=== PATIENT | female | born 1985 | race Caucasian/White ===

== ENCOUNTER 2021-02-08 12:48 | Day surgery (SDC) | payer BC ==
[2021-02-08 13:31] VITALS: BMI 34.4
[2021-02-08] MEDS ORDERED: hydrALAZINE 20 MG/ML VIAL SLOW IVP PRN (13:49)
[2021-02-08 14:46] LABS: Creatinine, Urine 57.64 mg/dL (47-110); Protein, Urine Random Quant Less than 10 mg/dL (1-14)
[2021-02-08 15:59] LABS: Hemoglobin 11.4 g/dL (12.0-15.5); Mean Corpuscular HGB CONC 33.3 g/dL (32.0-36.0); Mean Corpuscular Hemoglobin 26.4 pg (27.0-33.0); Mean Corpuscular Volume 79.2 fl (81.6-98.3); Platelet Count 311 10x3/uL (150-450); RBC Distribution Width 14.3 % (11.5-14.5); Red Blood Cell (RBC) Count 4.32 10x6/uL (3.90-5.03); White Blood Cell (WBC) Count 11.3 10x3/uL (3.5-10.5)
[2021-02-08 16:17] LABS: ALT (SGPT) 10 U/L (8-55); AST (SGOT) 9 U/L (5-34); Albumin 3.4 g/dL (3.5-5.0); Alkaline Phosphatase 127 U/L (40-110); Anion Gap 14 mmol/L (10-20); BUN (Urea Nitrogen) 9 mg/dL (7.0-18.7); Bilirubin, Total 0.2 mg/dL (0.2-1.2); Calc. Creatinine Clearance 197 mL/min (70-130); Calcium 9.2 mg/dL (7.8-10.44); Carbon Dioxide 21 mmol/L (22-29); Chloride 105 mmol/L (98-107); Globulin 2.8 g/dL (2.4-3.5); Glucose 86 mg/dL (70-105); Potassium 3.9 mmol/L (3.5-5.1); Protein, Total 6.2 g/dL (6.0-8.3); Sodium 136 mmol/L (136-145)
[2021-02-08 16:37] LABS: Hep B Surf Ag Non-Reactive S/CO (NonReactive)
== END 2021-02-08 17:55 | disposition home or self-care (01) ==
LOC: CSHLD/OP 12:48
PROVIDERS: ATTEND Obstetrics & Gynecology
DX: O10.013 Pre-existing essential hypertension complicating pregnancy, third trimester (principal); O34.211 Maternal care for low transverse scar from previous cesarean delivery; Z3A.33 33 weeks gestation of pregnancy; Z79.82 Long term (current) use of aspirin; Z79.899 Other long term (current) drug therapy
CPT/HCPCS: 36415; 80053; 82570; 84156; 85027; 86850; 86900; 86901; 87340; J0360

== ENCOUNTER 2021-02-26 16:40 | Inpatient (IN) | payer BC ==
[2021-02-26] MEDS: Lactated Ringer's 1,000 ML IV SCH ×2 (17:25→23:00)
[2021-02-26 17:27] VITALS: BMI 34.4
[2021-02-26] MEDS ORDERED: Promethazine HCl 25 MG/ML VIAL IM PRN ×2 (17:32→20:37)
[2021-02-26] MEDS ORDERED: Bicitra 30 ML UDCUP PO PRN (17:32)
[2021-02-26] MEDS ORDERED: Ondansetron PF 4 MG/2 ML Vial IVP PRN ×2 (17:32→20:37)
[2021-02-26] MEDS ORDERED: Famotidine/PF 20 mg/2ml Vial SLOW IVP PRN (17:32)
[2021-02-26 17:45] LABS: Hemoglobin 12.1 g/dL (12.0-15.5); Mean Corpuscular HGB CONC 33.7 g/dL (32.0-36.0); Mean Corpuscular Hemoglobin 26.9 pg (27.0-33.0); Mean Platelet Volume 11.1 fl (7.4-10.4); Platelet Count 313 10x3/uL (150-450); RBC Distribution Width 14.9 % (11.5-14.5); Red Blood Cell (RBC) Count 4.49 10x6/uL (3.90-5.03); White Blood Cell (WBC) Count 9.1 10x3/uL (3.5-10.5)
[2021-02-26] MEDS ORDERED: CEFAZOLIN 2 GM in Premix Bag 1 BAG IVPB SCH (17:45)
[2021-02-26 17:59] LABS: ALT (SGPT) 12 U/L (8-55); AST (SGOT) 13 U/L (5-34); Albumin 3.6 g/dL (3.5-5.0); Alkaline Phosphatase 134 U/L (40-110); Anion Gap 13 mmol/L (10-20); BUN (Urea Nitrogen) 11 mg/dL (7.0-18.7); Bilirubin, Total 0.2 mg/dL (0.2-1.2); Calc. Creatinine Clearance 194 mL/min (70-130); Calcium 9.4 mg/dL (7.8-10.44); Carbon Dioxide 22 mmol/L (22-29); Chloride 103 mmol/L (98-107); Globulin 2.9 g/dL (2.4-3.5); Glucose 75 mg/dL (70-105); Potassium 4.1 mmol/L (3.5-5.1); Protein, Total 6.5 g/dL (6.0-8.3); Sodium 134 mmol/L (136-145)
[2021-02-26] MEDS: hydrALAZINE 20 MG/ML VIAL SLOW IVP PRN ×2 (18:08→18:39)
[2021-02-26 18:20] LABS: Hep B Surf Ag Non-Reactive S/CO (NonReactive); Syphilis Antibody Nonreactive (Nonreactive); Syphilis Antibody Index 0.04 S/CO (<1.00 Non-Reactive)
[2021-02-26 18:26] LABS: HBSAg Index 0.17 S/CO (0-0.99)
[2021-02-26 18:40] LABS: SARS-CoV-2 NAA Rapid Test Not Detected (NotDetected)
[2021-02-26] MEDS ORDERED: NIFEdipine 10 MG CAP ONE ×2 (18:57→19:11)
[2021-02-26] MEDS ORDERED: Dexamethasone 4 mg/ml Vial ONE (19:02)
[2021-02-26] MEDS ORDERED: Morphine PF 10 MG/10 ML VIAL ONE (19:02)
[2021-02-26] MEDS ORDERED: Ketorolac Tromethamine 30 MG/ML VIAL ONE (19:02)
[2021-02-26] MEDS ORDERED: Ondansetron PF 4 MG/2 ML Vial ONE (19:02)
[2021-02-26] MEDS ORDERED: Fentanyl 100 MCG/2 ML VIAL ONE (19:02)
[2021-02-26] MEDS ORDERED: Oxytocin 10 UNITS/ML VIAL ONE (19:03)
[2021-02-26] MEDS ORDERED: Phenylephrine 10 MG/ML VIAL ONE ×2 (19:03→19:28)
[2021-02-26] MEDS ORDERED: Calcium Gluc 4.6 MEQ/10 ML (100 MG/ML) SLOW IVP PRN (19:13)
[2021-02-26] MEDS ORDERED: HYDROcodone/Acetaminophen 5/325 mg Tablet PO PRN ×2 (19:13)
[2021-02-26] MEDS ORDERED: Simethicone Chewable 80 MG TAB PO PRN (19:13)
[2021-02-26] MEDS ORDERED: Acetaminophen 325 MG TAB PO PRN (19:13)
[2021-02-26] MEDS ORDERED: hydrALAZINE 20 MG/ML VIAL SLOW IVP PRN (19:13)
[2021-02-26] MEDS ORDERED: Bisacodyl 10 MG SUPP PR PRN (19:13)
[2021-02-26] MEDS ORDERED: Zolpidem Tartrate 5 MG TAB PO PRN (19:13)
[2021-02-26] MEDS ORDERED: diphenhydrAMINE 25 MG CAP PO PRN (19:13)
[2021-02-26] MEDS ORDERED: Lanolin Ointment 7 GM TUBE TOP PRN (19:13)
[2021-02-26] MEDS ORDERED: Magnesium Sulfate 20 GM/WATER 500 ML BAG IVPB SCH (19:15)
[2021-02-26] MEDS ORDERED: ePHEDrine Sulfate 50 MG/10 ML VIAL ONE (19:27)
[2021-02-26 19:58] LABS: pH (Cord, venous) 7.304 (7.250-7.350)
[2021-02-26 19:58] LABS: Creatinine, Urine 46.04 mg/dL (47-110)
[2021-02-26] MEDS ORDERED: hydrALAZINE 20 MG/ML VIAL SLOW IVP SCH (20:00)
[2021-02-26] MEDS ORDERED: Fentanyl 100 MCG/2 ML VIAL SLOW IVP PRN (20:37)
[2021-02-26] MEDS ORDERED: Promethazine HCl 25 MG SUPP PR PRN (20:37)
[2021-02-26] MEDS ORDERED: Naloxone HCl 0.4 mg/ml Vial IV PRN (20:37)
[2021-02-26] MEDS ORDERED: Ondansetron HCl/PF 4 MG/2 ML Vial IVP PRN (20:37)
[2021-02-26] MEDS ORDERED: Meperidine HCl/PF 25 MG/ML VIAL SLOW IVP PRN (20:37)
[2021-02-26] MEDS ORDERED: diphenhydrAMINE 50 MG/ML VIAL IVP PRN (20:37)
[2021-02-26] MEDS ORDERED: Naloxone HCl 0.4 mg/ml Vial IVP PRN ×2 (20:37)
[2021-02-26] MEDS ORDERED: Hydrocerin (Eucerin) Cream 120 gm Jar TOP PRN (20:37)
[2021-02-26] MEDS ORDERED: Communication Order-Pharmacy FS SCH (20:45)
[2021-02-26] MEDS ORDERED: Ketorolac Tromethamine 30 MG/ML VIAL IVP SCH (20:45)
[2021-02-26] MEDS ORDERED: NS w/ Oxytocin 30 units 500 ML ONE (20:50)
[2021-02-26] MEDS ORDERED: NIFEdipine 10 MG CAP PO SCH (21:15)
[2021-02-26] MEDS: HYDROcodone/Acetaminophen 5/325 mg Tablet PO PRN (21:47)
[2021-02-26] MEDS ORDERED: Meperidine HCl/PF 25 MG/ML VIAL ONE (22:34)
[2021-02-27] MEDS: Ketorolac Tromethamine 30 MG/ML VIAL IVP SCH ×4 (02:52→23:52)
[2021-02-27] MEDS: Magnesium Sulfate 20 gm/500 ml 20 GM/500 ML BAG IVPB SCH ×2 (04:38→15:22)
[2021-02-27] MEDS ORDERED: Zolpidem Tartrate 5 MG TAB PO PRN (08:45)
[2021-02-27 13:21] LABS: Hemoglobin 10.4 g/dL (12.0-15.5); Mean Corpuscular HGB CONC 33.1 g/dL (32.0-36.0); Mean Corpuscular Hemoglobin 26.9 pg (27.0-33.0); Mean Corpuscular Volume 81.3 fl (81.6-98.3); Mean Platelet Volume 11.2 fl (7.4-10.4); Platelet Count 279 10x3/uL (150-450); Red Blood Cell (RBC) Count 3.86 10x6/uL (3.90-5.03); White Blood Cell (WBC) Count 13.5 10x3/uL (3.5-10.5)
[2021-02-27] MEDS ORDERED: Boostrix 0.5 ML (Tdap) VIAL IM ONE (19:13)
[2021-02-27] MEDS ORDERED: Labetalol 100 MG TAB PO SCH (21:00)
[2021-02-27] MEDS: Docusate Calcium (SURFAK) 240 MG CAP PO SCH ×2 (22:16→23:42)
[2021-02-27] MEDS: Lactated Ringer's 1,000 ML IV SCH ×2 (23:42→23:43)
[2021-02-28] MEDS: HYDROcodone/Acetaminophen 5/325 mg Tablet PO PRN ×3 (05:15→21:45)
[2021-02-28] MEDS: Ibuprofen 800 MG TAB PO SCH ×4 (05:17→21:42)
[2021-02-28] MEDS: Docusate Calcium (SURFAK) 240 MG CAP PO SCH ×3 (07:58→21:41)
[2021-02-28] MEDS: Lactated Ringer's 1,000 ML IV SCH ×3 (07:58→10:00)
[2021-02-28] MEDS: Labetalol 100 MG TAB PO SCH ×2 (09:13→21:42)
[2021-02-28] MEDS: Hydrochlorothiazide 25 MG TAB PO SCH (09:14)
[2021-03-01] MEDS: Ibuprofen 800 MG TAB PO SCH ×3 (05:25→22:47)
[2021-03-01] MEDS: HYDROcodone/Acetaminophen 5/325 mg Tablet PO PRN ×3 (05:25→19:59)
[2021-03-01] MEDS: hydrALAZINE 20 MG/ML VIAL SLOW IVP PRN (05:55)
[2021-03-01] MEDS ORDERED: Labetalol HCl 100 MG/20 ML VIAL SLOW IVP SCH (07:00)
[2021-03-01] MEDS: Lactated Ringer's 1,000 ML IV SCH ×2 (07:15→07:53)
[2021-03-01] MEDS: Hydrochlorothiazide 25 MG TAB PO SCH (07:47)
[2021-03-01] MEDS: Docusate Calcium (SURFAK) 240 MG CAP PO SCH ×2 (07:47→22:46)
[2021-03-01] MEDS: Labetalol 100 MG TAB PO SCH ×2 (07:48→22:47)
[2021-03-01] MEDS: Lisinopril 20 MG TAB PO SCH (07:48)
[2021-03-02] MEDS: Ibuprofen 800 MG TAB PO SCH ×3 (04:00→21:46)
[2021-03-02] MEDS: HYDROcodone/Acetaminophen 5/325 mg Tablet PO PRN ×4 (04:01→21:48)
[2021-03-02] MEDS: Labetalol 100 MG TAB PO SCH ×2 (09:49→21:46)
[2021-03-02] MEDS: Lisinopril 20 MG TAB PO SCH (09:49)
[2021-03-02] MEDS: Hydrochlorothiazide 25 MG TAB PO SCH (09:49)
[2021-03-02] MEDS: Docusate Calcium (SURFAK) 240 MG CAP PO SCH ×2 (09:50→21:46)
[2021-03-03] MEDS: Ibuprofen 800 MG TAB PO SCH ×3 (06:32→21:14)
[2021-03-03] MEDS: Lactated Ringer's 1,000 ML IV SCH ×4 (07:51→22:31)
[2021-03-03] MEDS: Lisinopril 20 MG TAB PO SCH (09:39)
[2021-03-03] MEDS: Hydrochlorothiazide 25 MG TAB PO SCH (09:39)
[2021-03-03] MEDS: Docusate Calcium (SURFAK) 240 MG CAP PO SCH ×2 (09:40→19:43)
[2021-03-03] MEDS: Labetalol 100 MG TAB PO SCH ×2 (09:40→19:40)
[2021-03-03] MEDS: hydrALAZINE 20 MG/ML VIAL SLOW IVP PRN ×2 (16:30→19:39)
[2021-03-03] MEDS ORDERED: Lorazepam 2 MG/ML VIAL SLOW IVP PRN (19:45)
[2021-03-03] MEDS ORDERED: NIFEdipine XL 30 MG TAB PO SCH (21:00)
[2021-03-03] MEDS: HYDROcodone/Acetaminophen 5/325 mg Tablet PO PRN (21:18)
[2021-03-04] MEDS: Ibuprofen 800 MG TAB PO SCH ×3 (06:12→21:50)
[2021-03-04] MEDS ORDERED: Fioricet 325/50/40 mg Tablet PO PRN (07:24)
[2021-03-04] MEDS ORDERED: NIFEdipine XL 30 MG TAB PO SCH (09:00)
[2021-03-04] MEDS: Lactated Ringer's 1,000 ML IV SCH ×3 (09:07→23:57)
[2021-03-04] MEDS: Labetalol 100 MG TAB PO SCH ×2 (09:33→21:52)
[2021-03-04] MEDS: Hydrochlorothiazide 25 MG TAB PO SCH (09:34)
[2021-03-04] MEDS: Lisinopril 20 MG TAB PO SCH (09:34)
[2021-03-04] MEDS: Docusate Calcium (SURFAK) 240 MG CAP PO SCH ×2 (09:37→23:55)
[2021-03-04] MEDS: HYDROcodone/Acetaminophen 5/325 mg Tablet PO PRN (21:54)
[2021-03-05 00:24] VITALS: TEMP 98.3
[2021-03-05] MEDS: Ibuprofen 800 MG TAB PO SCH (04:18)
[2021-03-05] MEDS: Lisinopril 20 MG TAB PO SCH (10:05)
[2021-03-05] MEDS: Docusate Calcium (SURFAK) 240 MG CAP PO SCH (10:05)
[2021-03-05] MEDS: Hydrochlorothiazide 25 MG TAB PO SCH (10:06)
[2021-03-05] MEDS: Labetalol 100 MG TAB PO SCH (10:06)
[2021-03-05 14:18] VITALS: BP 130/70
== END 2021-03-05 13:55 | disposition home or self-care (01) | DRG 787 ==
LOC: CSHLD 16:40 → CSHPP 02-27 23:00
PROVIDERS: ADMIT Obstetrics & Gynecology; ATTEND Obstetrics & Gynecology
PROC: 10D00Z1 Extraction of Products of Conception, Low, Open Approach (ICD-10-PCS; principal; 2021-02-26)
DX: O34.211 Maternal care for low transverse scar from previous cesarean delivery (principal); O10.92 Unspecified pre-existing hypertension complicating childbirth; Z20.822 Contact with and (suspected) exposure to COVID-19; O11.4 Pre-existing hypertension with pre-eclampsia, complicating childbirth; O13.4 Gestational [pregnancy-induced] hypertension without significant proteinuria, complicating childbirth; Z3A.35 35 weeks gestation of pregnancy; Z37.0 Single live birth; O90.81 Anemia of the puerperium; D50.9 Iron deficiency anemia, unspecified
CPT/HCPCS: 36415; 80053; 82570; 82805; 84156; 85027; 86780; 86850; 86900; 86901; 87340; 88307; J0360; J0690; J1100; J1200; J1885; J2175; J2274; J2370; J2405; J2590; J3010; J3475; J7120; S0028; U0002